=== PATIENT | male | born 1980 | race African-American/Black ===

== ENCOUNTER 2017-11-04 20:08 | Emergency (ER) | payer OTHER ==
[~2017-11-04] VITALS: Ht 172.7 cm; Wt 96.0 kg
[2017-11-04 21:02] VITALS: BP 135/76
== END 2017-11-04 23:44 | disposition left against medical advice (07) ==
LOC: ER 23:00
DX: Z53.21 Procedure and treatment not carried out due to patient leaving prior to being seen by health care provider (principal)

== ENCOUNTER 2021-08-13 19:45 | Emergency (ER) | payer BC, OTHER ==
[~2021-08-13] VITALS: Ht 172.7 cm; Wt 116.9 kg
[2021-08-13 19:56] VITALS: BP 146/82
[2021-08-14 01:24] LABS: BASOPHILS % 0.9 % (0.0-2.0); EOSINOPHILS % 0.8 % (0.0-5.0); HEMATOCRIT. 40.2 % (42.0-52.0); HEMOGLOBIN. 13.4 g/dL (14.0-18.0); LYMPHOCYTES % 37.7 % (20.0-50.0); MEAN CORPUSCULAR HEMOGLOBIN 27.9 pg (28.0-32.0); MEAN CORPUSCULAR VOLUME 83.9 fL (80.0-94.0); MEAN PLATELET VOLUME 8.9 fl (7.4-10.4); MONOCYTES % 11.5 % (2.0-8.0); NEUTROPHILS % 49.1 % (40.0-76.0); PLATELET 221 x1000/uL (130-400); RED BLOOD CELL COUNT 4.79 mill/uL (4.7-6.1); RED CELL DISTRIBUTION WIDTH 14.4 % (11.6-14.6)
[2021-08-14 01:35] LABS: CHLORIDE 103 mEq/L (98-107)
== END 2021-08-14 03:31 | disposition home or self-care (01) ==
LOC: ER 19:45
DX: R00.2 Palpitations (principal); R94.31 Abnormal electrocardiogram [ECG] [EKG]
CPT/HCPCS: 36415; 80053; 83880; 84484; 85025; 85379; 93005; 99284